=== PATIENT | male | born 1960 | race African-American/Black ===

== ENCOUNTER 2017-02-21 05:12 | Day surgery (SDC) | payer MEDICARE, MEDICAID ==
[2017-02-07 11:56] LABS: PROTHROMBIN TIME 12.5 SEC (11.4-15.4)
[2017-02-07 11:57] LABS: HEMATOCRIT 39.8 % (37.9-51.0); HEMOGLOBIN 12.9 g/dL (13.5-17.0); HGB HCT DIFFERENCE -1.1; MEAN CORPUSCULAR HEMOGLOBIN 29.9 pg (27.0-33.4); MEAN CORPUSCULAR HGB CONC 32.5 g/dL (32.0-36.0); MEAN CORPUSCULAR VOLUME 92 fl (80-97); RED BLOOD COUNT 4.33 10^6/uL (4.35-5.55); RED CELL DISTRIBUTION WIDTH 13.6 % (11.5-14.0); WHITE BLOOD COUNT 7.2 10^3/uL (4.0-10.5)
--- NOTE | 2017-02-08 00:26 | EKG REPORT ---
SEVERITY:- ABNORMAL ECG - SINUS RHYTHM RIGHT AXIS DEVIATION NONSPECIFIC T ABNORMALITIES, LATERAL LEADS MINIMAL ST ELEVATION, ANTERIOR LEADS : Confirmed by: Dionte García 08-Feb-2017 00:25:31
[~2017-02-21 05:12] MED LIST: CEFAZOLIN 1 GM/D5W RTU 1 GM/50 ML RTUPB IV PRN; LACTATED RINGERS 1000 ML IV PRN; LIDOCAINE 0.5% INJ-PF (5 MG/ML) 50 ML SDV SUBCUT PRN
[2017-02-21] MEDS ORDERED: LIDOCAINE 0.5% INJ-PF (5 MG/ML) 50 ML SDV ONE (06:46)
[2017-02-21] MEDS ORDERED: KETOROLAC TROMETHAMINE 60 MG/2 ML SDV ONE (06:59)
[2017-02-21] MEDS ORDERED: FENTANYL CITRATE INJ/PF 100 MCG/2 ML AMPUL ONE (06:59)
[2017-02-21] MEDS ORDERED: PROPOFOL INJ 200 MG/20 ML VIAL IV ONE (06:59)
[2017-02-21] MEDS ORDERED: MIDAZOLAM 2 MG/2 ML INJ ONE (06:59)
[2017-02-21] MEDS ORDERED: FENTANYL CITRATE INJ/PF 100 MCG/2 ML AMPUL IV PRN ×3 (08:58)
[2017-02-21] MEDS ORDERED: DIPHENHYDRAMINE HCL 50 MG/ML VIAL IV PRN (08:58)
[2017-02-21] MEDS ORDERED: MORPHINE SULFATE 10 MG/ML INJ IV PRN (08:58)
[2017-02-21] MEDS ORDERED: PROMETHAZINE HCL INJ 25 MG/1 ML VIAL IV PRN ×2 (08:58)
[2017-02-21] MEDS ORDERED: MEPERIDINE HCL/PF INJ 25 MG/1 ML DISP.SYRIN IV PRN (08:58)
[2017-02-21] MEDS ORDERED: OXYCODONE-ACETAMINOPHEN 5-325 MG TABLET PO PRN ×2 (08:58)
--- NOTE | 2017-02-21 09:02 | Operative Report ---
Operative Report DATE OF SURGERY: 02/21/17 PREOPERATIVE DIAGNOSIS: Right carpal tunnel syndrome POSTOPERATIVE DIAGNOSIS: Same OPERATION: Right carpal tunnel release SURGEON: STEPHANIE AGRAWAL ANESTHESIA: IV-Regional - [place] block tourniquet time was 57 minutes TISSUE REMOVED OR ALTERED: None COMPLICATIONS: None ESTIMATED BLOOD LOSS: Minimal PROCEDURE: The correct side for carpal tunnel release was identified with the patient. The patient was then brought into the operating room and placed on the operating room table in a supine position. A Kalyani block was instilled by anesthesia. The tourniquet was set at approximately 270mm Hg. The arm was then prepped with a Betadine scrub and Betadine solution and draped in a sterile aseptic manner. An outlined overlying the carpal tunnel was made and a small zig zag across the wrist was outlined. An incision was then made with a 15 blade. This was carried down through the superficial palmar fascia. The palmaris brevis was identified and was coagulated as we proceeded deeper. Dissection continued until the transverse carpal ligament was exposed. Using a [place] blade a small dissection was performed to get past the surface of the transverse carpal ligament and enter into the carpal canal. After there was exposure a [place] elevator was placed to protect the median nerve. Using the freer elevator and the tunnel while protecting the nerve [id number] the transverse carpal ligament was released distally and proximally. Throughout the dissection great caution was used to identify any anomalous branching of the median nerve and motor branch. Along the wrist a small zig zag was carried to the distal most portion of the forearm. We then went ahead and freed the distal and the brachial fascia of the forearm in order to minimize any areas of possible entrapment in the future.. After the dissection was completed confirmation of release into the distal forearm of the antebrachial fascia as well as distally showing the dark yellow fat of the palm. The arch was identified and was not jeopardized throughout the dissection. An epineurotomy was performed of along the course of the median nerve so that there will be no further areas of any compression to the nerve. Throughout the case the bipolar was used for hemostasis . Betadine saline irrigation was performed in the operative field. Once good hemostasis was obtained the closure was then performed using 4-0 Prolene horizontal mattress and simple sutures. The tourniquet was then released and there was good blood flow returned to the fingers and no signs of any active bleeding at the incision line. Bacitracin was applied then Xeroform was applied and 4 x 4's were placed. A splint was then applied with web roll and Ortho-Glass with Fili wraps. Patient was then reversed from anesthesia and taken to the [facility] for recovery. This dictation was performed with straight and actually speaking. If there are any irregularities please contact the dictating physician. Subjective: No complaints Objective: Vital signs stable afebrile No bleeding Dressing intact Assessment and plan: Doing well. Elevate the operative site. Resume medications. Take antibiotics for 1 day Follow-up Full instructions were given to the patient and family and they understand Portions of this note may be dictated using [employer] voice recognition software. Occasional variations and spelling and vocabulary could be possible and are unintentional. Additionally, there is a chance that some errors may not be caught or corrected. Please notify the offer of any discrepancies noted or if any statements are unclear.
--- NOTE | 2017-02-21 09:04 | PDOC DISCHARGE SUMMARY ---
Discharge Summary (SDC) - Discharge Final Diagnosis: Right carpal tunnel release Date of Surgery: 02/21/17 Condition: Good Treatment or Instructions: Leave the top dressing on for 2 days, then removed. Leave the steri-strip tapes on for 5 days, then removal. Then cleaning wound with peroxide and apply Neosporin/bacitracin 3 times per day. Antibiotics for 1 day, then discontinue. Elevate operative area to decrease swelling. Do not strain, or lift heavy objects. Call for excessive bleeding, increased temperature of 101, uncontrolled pain, or excessive nausea or vomiting. You may reach Dr. Wyman through his office at [phone]. In the event of an emergency after hours, then contact Dr. Wyman through [facility]. Return to the office for a postop check on . The time will be scheduled by the nursing staff of [facility] prior to discharge. Please give the patient a copy of their labs and EKG so they can bring this to their PMD. Thank you Portions of this note may be dictated using [employer] voice recognition software. Occasional variations and spelling and vocabulary could be possible and are unintentional. Additionally, there is a chance that some errors may not be caught or corrected. Please notify the offer of any discrepancies noted or if any statements are unclear. Discharge Diet: As Tolerated Discharge Activity: No Lifting/Push/Pulling - Keep hand elevated
[2017-02-21 11:15] VITALS: BP 116/80
== END 2017-02-21 11:20 | disposition home or self-care (01) ==
LOC: OROUT 05:12
PROVIDERS: ATTEND Plastic Surgery
PROC: 01N50ZZ Release Median Nerve, Open Approach (ICD-10-PCS; principal; 2017-02-21 07:30)
DX: G56.01 Carpal tunnel syndrome, right upper limb (principal); Z79.01 Long term (current) use of anticoagulants; G56.02 Carpal tunnel syndrome, left upper limb
CPT/HCPCS: 93005; 36415; 85027; 85610; 85730; 93010; 64721; J2250; J0690; J1885; J3010; J3490; J2704; 1810